=== PATIENT | female | born 1960 | race Caucasian/White ===

== ENCOUNTER 2016-06-23 10:21 | Emergency (ER) | payer MEDICAID ==
[~2016-06-23] VITALS: Ht 160 cm; Wt 81.6 kg
[2016-06-23 10:21] VITALS: BP 152/81; PULSE 101; RESP 16; TEMP 96.6; O2SAT 98
--- NOTE | 2016-06-23 10:21 | NUR ---
Patient to ER bed 3 to gown for evaluation. Side rails up. Report given to kenyon martinez.
--- NOTE | 2016-06-23 10:21 | NUR ---
sudden onset of shortness of breath,wheezing. per pt's son in law pt has lungs problem for four months. pt is awake,alert,wheezing bilaterally,mild distress. skin warm dry.
[2016-06-23] MEDS ORDERED: IPRATROPIUM/ALBUTEROL SULFATE 3 ML AMPUL.NEB INH ONE (10:45)
--- NOTE | 2016-06-23 10:47 | NUR ---
# 18 gauge angiocath placed to LAC . Use of asceptic technique. Opsite placed over site. Blood return noted. Blood for lab drawn from site. Flushed with 10 cc of normal saline. No evidence of infiltration noted. Patient tolerated well.
--- NOTE | 2016-06-23 10:47 | NUR ---
Placed in room 3 . Placed on youth nutritional monitor, blood pressure machine and pulse oximeter. To gown for exam. Side rails up.
--- NOTE | 2016-06-23 11:04 | NUR ---
ER at bedside examining patient.
[2016-06-23] MEDS ORDERED: methylPREDNISolone SOD SUCC/PF 62.5 MG/ML VIAL IVP ONE (11:15)
[2016-06-23 11:25] LABS: BASOPHILS % (AUTO) 0.4 % (0.0-2.0); EOSINOPHILS # (AUTO) 0.5 K/uL (0.0-0.4); EOSINOPHILS % (AUTO) 7.6 % (0.0-4.0); HEMATOCRIT 33.9 % (36-48); HEMOGLOBIN 10.9 g/dL (12.0-16.0); LYMPHOCYTES # (AUTO) 2.1 K/uL (1.0-5.5); LYMPHOCYTES % (AUTO) 30.7 % (20.5-51.5); MEAN CORPUSCULAR HEMOGLOBIN 26 pg (27-31); MEAN CORPUSCULAR HGB CONC 32 % (32-36); MEAN CORPUSCULAR VOLUME 82 fL (79.0-98.0); MONOCYTES # (AUTO) 0.4 K/uL (0.0-1.0); MONOCYTES % (AUTO) 5.2 % (1.7-9.3); NEUTROPHILS # (AUTO) 3.9 K/uL (1.8-7.7); NEUTROPHILS % (AUTO) 56.1 % (40.0-70.0); PLATELET COUNT (AUTO) 324 K/uL (130-430); RED BLOOD CELL COUNT(AUTO) 4.13 MIL/uL (4.2-6.2); RED CELL DISTRIBUTION WIDTH 15.9 % (9.0-15.0); WHITE BLOOD COUNT (AUTO) 6.9 K/uL (4.8-10.8)
[2016-06-23 11:30] LABS: CALCIUM 8.7 mg/dL (8.4-11.0); CREATININE 0.73 mg/dL (0.55-1.30); POTASSIUM 4.1 mmol/L (3.5-5.1)
[2016-06-23 11:35] LABS: ALBUMIN 4.1 g/dL (3.4-4.8); TOTAL BILIRUBIN 0.2 mg/dL (0.0-1.0)
--- NOTE | 2016-06-23 12:07 | NUR ---
returned back from [facility]. symptoms improved after breathing treatment.
[2016-06-23 12:23] LABS: BILIRUBIN,URINE NEGATIVE (NEGATIVE); BLOOD, URINE NEGATIVE (NEGATIVE); CLARITY/URINE CLEAR (CLEAR); COLOR,URINE YELLOW (YELLOW); GLUCOSE,URINE NEGATIVE (NEGATIVE); KETONES,URINE NEGATIVE (NEGATIVE); LEUKOCYTE ESTERASE ,URINE NEGATIVE (NEGATIVE); NITRITE, URINE NEGATIVE (NEGATIVE); PH,URINE 5.5 (5.0-8.0); PROTEIN URINE NEGATIVE (NEGATIVE); UROBILINOGEN,URINE 0.2 (0.2-1.0)
--- NOTE | 2016-06-23 12:44 | NUR ---
Patient given written and verbal discharge instructions and verbalizes understanding. ER MD discussed with patient the results and treatment provided. Given copies of tests performed in ER. Patient in stable condition. ID arm band removed. IV catheter removed intact and dressing applied, no active bleeding. Rx of given. Patient educated on pain management and to follow up with PMD. Pain Scale . Opportunity for questions provided and answered.
[2016-06-23 12:48] VITALS: BP 113/67; PULSE 90; RESP 17; TEMP 98.7; O2SAT 95
== END 2016-06-23 12:48 | disposition home or self-care (01) ==
LOC: SED 10:21
DX: J40 Bronchitis, not specified as acute or chronic (principal)
CPT/HCPCS: 36415; 71010; 80053; 81003; 81025; 83880; 84484; 85025; 93005; 94640; 96374; 99285; J2930

== ENCOUNTER 2017-07-13 07:45 | Emergency (ER) | payer MEDICAID ==
[~2017-07-13] VITALS: Ht 160 cm; Wt 81.6 kg
[2017-07-13 07:48] VITALS: BP_SYST 139
[2017-07-13] MEDS ORDERED: IPRATROPIUM/ALBUTEROL SULFATE 3 ML AMPUL.NEB INH ONE ×3 (08:00→09:15)
[2017-07-13] MEDS ORDERED: DEXAMETHASONE SOD PHOSPHATE 10 MG/ML VIAL IVP ONE (08:00)
[2017-07-13] MEDS ORDERED: NACL 0.9% 1,000 ML IV ONE (08:00)
[2017-07-13 09:50] VITALS: BP_SYST 129
== END 2017-07-13 09:50 | disposition home or self-care (01) ==
LOC: SED 07:45
DX: J45.909 Unspecified asthma, uncomplicated (principal)
CPT/HCPCS: 94640; 96361; 96374; 99284; J1100; J7030

== ENCOUNTER 2017-08-09 22:21 | Emergency (ER) | payer MEDICAID ==
[~2017-08-09] VITALS: Ht 157.5 cm; Wt 72.6 kg
[2017-08-09 22:30] VITALS: BP_SYST 126
[2017-08-09] MEDS ORDERED: MAGNESIUM SULFATE 50 ML IV ONE (22:30)
[2017-08-09] MEDS ORDERED: ALBUTEROL SULFATE 0.083% 2.5 MG/3 ML VIAL.NEB IH ONE ×2 (22:30→23:00)
[2017-08-09] MEDS ORDERED: IPRATROPIUM BROM 0.5 MG/2.5 ML VIAL.NEB (ATROVENT) IH ONE ×2 (22:30→23:00)
[2017-08-09] MEDS ORDERED: methylPREDNISolone SOD SUCC/PF 62.5 MG/ML VIAL IVP ONE (22:30)
[2017-08-09 22:53] LABS: BASOPHILS # (AUTO) 0.1 K/uL (0.0-0.2); BASOPHILS % (AUTO) 0.7 % (0.0-2.0); HEMATOCRIT 36.5 % (36-48); HEMOGLOBIN 12.5 g/dL (12.0-16.0); LYMPHOCYTES # (AUTO) 2.7 K/uL (1.0-5.5); LYMPHOCYTES % (AUTO) 29.2 % (20.5-51.5); MEAN CORPUSCULAR HEMOGLOBIN 30 pg (27-31); MEAN CORPUSCULAR HGB CONC 34 % (32-36); MEAN CORPUSCULAR VOLUME 89 fL (79.0-98.0); MONOCYTES # (AUTO) 0.5 K/uL (0.0-1.0); MONOCYTES % (AUTO) 5.9 % (1.7-9.3); NEUTROPHILS % (AUTO) 53.6 % (40.0-70.0); PLATELET COUNT (AUTO) 318 K/uL (130-430); RED BLOOD CELL COUNT(AUTO) 4.11 MIL/uL (4.2-6.2); RED CELL DISTRIBUTION WIDTH 12.8 % (9.0-15.0); WHITE BLOOD COUNT (AUTO) 9.3 K/uL (4.8-10.8)
[2017-08-09 23:08] LABS: EOSINOPHILS % (AUTO) 10.6 % (0.0-4.0)
[2017-08-09 23:41] LABS: CREATININE 0.55 mg/dL (0.55-1.30); POTASSIUM 3.5 mmol/L (3.5-5.1)
[2017-08-09 23:51] LABS: ALBUMIN 3.8 g/dL (3.4-4.8); TOTAL BILIRUBIN 0.3 mg/dL (0.0-1.0)
[2017-08-10] MEDS ORDERED: ALBUTEROL SULFATE 0.083% 2.5 MG/3 ML VIAL.NEB IH ONE (01:00)
[2017-08-10] MEDS ORDERED: IPRATROPIUM BROM 0.5 MG/2.5 ML VIAL.NEB (ATROVENT) IH ONE (01:00)
[2017-08-10 01:56] VITALS: BP_SYST 132
== END 2017-08-10 01:56 | disposition home or self-care (01) ==
LOC: SED 22:21
DX: J45.901 Unspecified asthma with (acute) exacerbation (principal)
CPT/HCPCS: 36415; 80053; 85025; 94640 ×2; 96365; 96366; 96375; 99285; J2930; J3475

== ENCOUNTER 2018-03-07 16:48 | Emergency (ER) | payer MEDICAID ==
[~2018-03-07] VITALS: Ht 160 cm; Wt 78.0 kg
[2018-03-07 16:51] VITALS: BP_SYST 116
--- NOTE | 2018-03-07 17:05 | NUR ---
Patient to ER bed 7 to gown for evaluation. Side rails up.
--- NOTE | 2018-03-07 17:06 | NUR ---
ER at bedside examining patient.
--- NOTE | 2018-03-07 17:10 | NUR ---
Pt presents to Ed c/o abd pain and SOB. Pt reports h/o asthma. Pt has abd distention and tenderness to palpation noted.
[2018-03-07] MEDS ORDERED: IPRATROPIUM BROM 0.5 MG/2.5 ML VIAL.NEB (ATROVENT) INH ONE ×2 (17:15→19:00)
[2018-03-07] MEDS ORDERED: ALBUTEROL SULFATE 0.083% 2.5 MG/3 ML VIAL.NEB INH ONE ×2 (17:15→19:00)
[2018-03-07] MEDS ORDERED: fentaNYL CITRATE/PF 100 MCG/2 ML AMP IVP ONE (17:15)
--- NOTE | 2018-03-07 17:20 | NUR ---
Pt receiving breathing tx
--- NOTE | 2018-03-07 17:30 | NUR ---
Pt refused pain medication.
[2018-03-07 17:38] LABS: BASOPHILS # (AUTO) 0.1 K/uL (0.0-0.2); BASOPHILS % (AUTO) 0.7 % (0.0-2.0); EOSINOPHILS # (AUTO) 1.2 K/uL (0.0-0.4); EOSINOPHILS % (AUTO) 13.5 % (0.0-4.0); HEMATOCRIT 39.4 % (36-48); HEMOGLOBIN 13.2 g/dL (12.0-16.0); LYMPHOCYTES # (AUTO) 2.9 K/uL (1.0-5.5); LYMPHOCYTES % (AUTO) 32.8 % (20.5-51.5); MEAN CORPUSCULAR HEMOGLOBIN 30 pg (27-31); MEAN CORPUSCULAR HGB CONC 33 % (32-36); MEAN CORPUSCULAR VOLUME 89 fL (79.0-98.0); MONOCYTES # (AUTO) 0.6 K/uL (0.0-1.0); MONOCYTES % (AUTO) 6.6 % (1.7-9.3); NEUTROPHILS # (AUTO) 4.1 K/uL (1.8-7.7); NEUTROPHILS % (AUTO) 46.4 % (40.0-70.0); PLATELET COUNT (AUTO) 294 K/uL (130-430); RED BLOOD CELL COUNT(AUTO) 4.42 MIL/uL (4.2-6.2); RED CELL DISTRIBUTION WIDTH 13.9 % (9.0-15.0); WHITE BLOOD COUNT (AUTO) 8.9 K/uL (4.8-10.8)
[2018-03-07 17:44] LABS: ALBUMIN 3.7 g/dL (3.4-4.8); CALCIUM 8.9 mg/dL (8.4-11.0); CREATININE 0.88 mg/dL (0.55-1.30); POTASSIUM 3.8 mmol/L (3.5-5.1); TOTAL BILIRUBIN 0.4 mg/dL (0.0-1.0)
--- NOTE | 2018-03-07 18:30 | NUR ---
Pt receiving second breathing tx. Pt tolerating well.
[2018-03-07] MEDS ORDERED: methylPREDNISolone SOD SUCC/PF 62.5 MG/ML VIAL IVP ONE (19:00)
--- NOTE | 2018-03-07 19:00 | NUR ---
Pt medicated with Solumedrol.
[2018-03-07 19:30] VITALS: BP_SYST 121
--- NOTE | 2018-03-07 19:30 | NUR ---
Patient given written and verbal discharge instructions and verbalizes understanding. ER MD Nash discussed with patient the results and treatment provided. Patient in stable condition. ID arm band removed. IV catheter removed intact and dressing applied, no active bleeding. Rx of Prednisone, Albuterol given. Patient educated on pain management and to follow up with PMD. Pain Scale 0. Opportunity for questions provided and answered. Medication side effect fact sheet provided.
== END 2018-03-07 19:30 | disposition home or self-care (01) ==
LOC: SED 16:48
DX: J45.909 Unspecified asthma, uncomplicated (principal); R10.9 Unspecified abdominal pain
CPT/HCPCS: 36415; 71045; 74176; 80053; 82550; 83880; 84484; 85025; 93005; 94640; 96374; 99285; J2930; J3010; J7613

== ENCOUNTER 2018-03-26 07:56 | Emergency (ER) | payer MEDICAID ==
[~2018-03-26] VITALS: Ht 167.6 cm; Wt 81.6 kg
[2018-03-26 07:56] VITALS: BP_SYST 150
[2018-03-26] MEDS ORDERED: NACL 0.9% 1,000 ML IV ONE (07:59)
[2018-03-26] MEDS ORDERED: IPRATROPIUM BROM 0.5 MG/2.5 ML VIAL.NEB (ATROVENT) IH ONE ×4 (08:00→10:45)
[2018-03-26] MEDS ORDERED: methylPREDNISolone SOD SUCC/PF 62.5 MG/ML VIAL IVP ONE (08:00)
[2018-03-26] MEDS ORDERED: MAGNESIUM SULFATE 1 GM in NS 50 ML IV ONE (08:00)
[2018-03-26] MEDS ORDERED: cefTRIAXone 1 GM IVPB PREMIX 50 ML IV ONE (08:00)
[2018-03-26] MEDS ORDERED: ALBUTEROL SULFATE 0.083% 2.5 MG/3 ML VIAL.NEB IH ONE ×4 (08:00→10:45)
[2018-03-26] MEDS ORDERED: MAGNESIUM SULFATE 1 GM/2 ML VIAL ONE (08:13)
[2018-03-26 08:28] LABS: BASOPHILS % (AUTO) 0.2 % (0.0-2.0); EOSINOPHILS # (AUTO) 1.1 K/uL (0.0-0.4); HEMATOCRIT 41.7 % (36-48); HEMOGLOBIN 13.1 g/dL (12.0-16.0); LYMPHOCYTES # (AUTO) 1.9 K/uL (1.0-5.5); LYMPHOCYTES % (AUTO) 27.7 % (20.5-51.5); MEAN CORPUSCULAR HEMOGLOBIN 29 pg (27-31); MEAN CORPUSCULAR HGB CONC 31 % (32-36); MEAN CORPUSCULAR VOLUME 91 fL (79.0-98.0); MONOCYTES # (AUTO) 0.5 K/uL (0.0-1.0); MONOCYTES % (AUTO) 6.8 % (1.7-9.3); NEUTROPHILS # (AUTO) 3.4 K/uL (1.8-7.7); NEUTROPHILS % (AUTO) 49.3 % (40.0-70.0); PLATELET COUNT (AUTO) 280 K/uL (130-430); RED BLOOD CELL COUNT(AUTO) 4.58 MIL/uL (4.2-6.2); RED CELL DISTRIBUTION WIDTH 13.8 % (9.0-15.0); WHITE BLOOD COUNT (AUTO) 6.9 K/uL (4.8-10.8)
[2018-03-26 08:33] LABS: CALCIUM 8.6 mg/dL (8.4-11.0); CREATININE 0.71 mg/dL (0.55-1.30); POTASSIUM 3.4 mmol/L (3.5-5.1)
[2018-03-26 08:38] LABS: ALBUMIN 3.9 g/dL (3.4-4.8); TOTAL BILIRUBIN 0.4 mg/dL (0.0-1.0)
[2018-03-26 08:39] LABS: INR 0.9 (0.8-1.2); PROTHROMBIN TIME 9.4 SECS (9.5-12.5)
[2018-03-26] MEDS ORDERED: ALBUTEROL SULFATE 0.083% 2.5 MG/3 ML VIAL.NEB INH ONE (09:10)
[2018-03-26] MEDS ORDERED: IPRATROPIUM BROM 0.5 MG/2.5 ML VIAL.NEB (ATROVENT) INH ONE (09:10)
[2018-03-26 11:19] VITALS: BP_SYST 129
== END 2018-03-26 11:19 | disposition home or self-care (01) ==
LOC: SED 07:56
DX: J45.901 Unspecified asthma with (acute) exacerbation (principal)
CPT/HCPCS: 36415; 36600; 71045; 80053; 82550; 82803; 83605; 83690; 84484; 85025; 85610; 85730; 87040; 93005; 94640; 96365; 96367; 96375; 99285; J0696; J2930; J3475; J7030; J7613; 99284

== ENCOUNTER 2018-04-22 18:53 | Inpatient (IN) | payer MEDICAID ==
[~2018-04-22] VITALS: Ht 160 cm; Wt 79.1 kg
[2018-04-22 19:03] VITALS: BP_SYST 143
[2018-04-22] MEDS ORDERED: IPRATROPIUM/ALBUTEROL SULFATE 3 ML AMPUL.NEB (DUONEB) INH ONE ×3 (19:15→21:15)
[2018-04-22] MEDS ORDERED: DEXAMETHASONE SOD PHOSPHATE 10 MG/ML VIAL IM ONE (19:15)
[2018-04-22] MEDS ORDERED: NACL 0.9% 1,000 ML IV ONE ×2 (19:15→19:50)
[2018-04-22 19:58] LABS: BASOPHILS % (AUTO) 0.5 % (0.0-2.0); EOSINOPHILS # (AUTO) 0.7 K/uL (0.0-0.4); EOSINOPHILS % (AUTO) 8.1 % (0.0-4.0); HEMATOCRIT 41.3 % (36-48); HEMOGLOBIN 13.6 g/dL (12.0-16.0); LYMPHOCYTES # (AUTO) 0.9 K/uL (1.0-5.5); LYMPHOCYTES % (AUTO) 11.1 % (20.5-51.5); MEAN CORPUSCULAR HEMOGLOBIN 30 pg (27-31); MEAN CORPUSCULAR HGB CONC 33 % (32-36); MEAN CORPUSCULAR VOLUME 91 fL (79.0-98.0); MONOCYTES # (AUTO) 0.2 K/uL (0.0-1.0); NEUTROPHILS # (AUTO) 6.5 K/uL (1.8-7.7); NEUTROPHILS % (AUTO) 78.3 % (40.0-70.0); PLATELET COUNT (AUTO) 328 K/uL (130-430); RED BLOOD CELL COUNT(AUTO) 4.56 MIL/uL (4.2-6.2); RED CELL DISTRIBUTION WIDTH 13.5 % (9.0-15.0); WHITE BLOOD COUNT (AUTO) 8.3 K/uL (4.8-10.8)
[2018-04-22] MEDS ORDERED: MAGNESIUM SULFATE 50 ML IV ONE (20:00)
[2018-04-22 20:02] LABS: ANION GAP 9 (5-15); CHLORIDE 104 mmol/L (98-107); CREATININE 0.79 mg/dL (0.55-1.30); GFR AFRICAN AMERICAN 97 mL/min (>90); GLUCOSE 140 mg/dL (70-99); POTASSIUM 4.4 mmol/L (3.5-5.1); SODIUM SERUM 140 mmol/L (136-145); UREA NITROGEN, BLOOD 16 mg/dL (8-21)
[2018-04-22 20:11] LABS: ALANINE AMINOTRANSFERASE 37 U/L (12-78); ASPARTATE AMINOTRANSFERASE 20 U/L (10-37); TOTAL BILIRUBIN 0.3 mg/dL (0.0-1.0)
[2018-04-22] MEDS ORDERED: ALBU8.5H8 INH (21:16)
[2018-04-22] MEDS ORDERED: IPRATROPIUM/ALBUTEROL SULFATE 3 ML AMPUL.NEB (DUONEB) INH PRN (21:30)
[2018-04-22] MEDS ORDERED: POTASSIUM CHLORIDE 20 MEQ TAB.PRT.SR PO PRN (21:45)
[2018-04-22] MEDS ORDERED: MORPHINE 4 MG/ML INJ. SYRINGE IVP PRN ×2 (21:45)
[2018-04-22] MEDS ORDERED: LORazepam 2 MG/ML VIAL IVP PRN (21:45)
[2018-04-22] MEDS ORDERED: MUPIROCIN 2% TOPICAL OINTMENT 22 GM NS PRN (21:45)
[2018-04-22] MEDS ORDERED: ONDANSETRON HCL 4 MG/2 ML VIAL IVP PRN (21:45)
[2018-04-22] MEDS ORDERED: DOCUSATE SODIUM 100 MG CAPSULE PO PRN (21:45)
[2018-04-22] MEDS ORDERED: ZOLPIDEM TARTRATE 5 MG TABLET PO PRN (21:45)
[2018-04-22] MEDS ORDERED: MAGNESIUM SULFATE 50 ML IV PRN (21:45)
[2018-04-22] MEDS ORDERED: ACETAMINOPHEN 325 MG TABLET PO PRN (21:45)
[2018-04-22 21:57] VITALS: BP_SYST 125
[2018-04-22 22:11] VITALS: BP_SYST 128
[2018-04-22 22:15] VITALS: BP_SYST 125
[2018-04-23 00:30] VITALS: BP_SYST 132
[2018-04-23 08:00] VITALS: BP_SYST 121
[2018-04-23] MEDS: HEPARIN SODIUM,PORCINE 5000 UNITS/ML VIAL SUBCUT SCH ×2 (08:59→20:23)
[2018-04-23] MEDS ORDERED: methylPREDNISolone SOD SUCC 40 MG/ML VIAL IVP SCH ×2 (09:00)
[2018-04-23] MEDS ORDERED: FLUTICASONE 250 mCg/SALMETEROL 50 mCg DISKUS W.DEV INH SCH (10:00)
[2018-04-23] MEDS ORDERED: FLUTICASONE/VILANTEROL 1 EACH BLST.W.DEV INH ONE (10:00)
[2018-04-23] MEDS ORDERED: DEXTROSE 50% JECT 50 ML DISP.SYRIN IVP PRN (10:00)
[2018-04-23] MEDS: IPRATROPIUM/ALBUTEROL SULFATE 3 ML AMPUL.NEB (DUONEB) INH SCH ×5 (10:30→23:23)
[2018-04-23] MEDS ORDERED: AZITHROMYCIN 250 MG TABLET PO ONE (10:30)
[2018-04-23 12:34] VITALS: BP_SYST 120
[2018-04-23] MEDS: methylPREDNISolone SOD SUCC/PF 62.5 MG/ML VIAL IVP SCH ×2 (15:44→20:20)
[2018-04-23 16:10] VITALS: BP_SYST 136
[2018-04-23] MEDS: INSULIN ASPART 100 UNITS/ML, 10 ML VIAL (NovoLOG) SUBCUT PRN ×2 (17:19→20:39)
[2018-04-23 20:00] VITALS: BP_SYST 115
[2018-04-24 00:18] VITALS: BP_SYST 113
[2018-04-24] MEDS: methylPREDNISolone SOD SUCC/PF 62.5 MG/ML VIAL IVP SCH ×2 (04:00→08:51)
[2018-04-24] MEDS: IPRATROPIUM/ALBUTEROL SULFATE 3 ML AMPUL.NEB (DUONEB) INH SCH ×3 (04:24→11:19)
[2018-04-24 07:55] VITALS: BP_SYST 104
[2018-04-24] MEDS: HEPARIN SODIUM,PORCINE 5000 UNITS/ML VIAL SUBCUT SCH (08:54)
[2018-04-24] MEDS ORDERED: FLUTICASONE/VILANTEROL 1 EACH BLST.W.DEV INH SCH (09:00)
[2018-04-24] MEDS ORDERED: AZITHROMYCIN 250 MG TABLET PO SCH ×2 (09:00)
[2018-04-24] MEDS ORDERED: FLO44 INH (10:54)
[2018-04-24] MEDS ORDERED: MONT10TA25 PO (10:54)
[2018-04-24 11:18] VITALS: BP_SYST 120
[2018-04-24] MEDS ORDERED: methylPREDNISolone SOD SUCC 40 MG/ML VIAL IVP SCH (14:00)
[2018-04-24] MEDS ORDERED: MONTELUKAST 10 MG TABLET PO SCH (18:00)
== END 2018-04-24 11:50 | disposition home or self-care (01) | DRG 141 ==
LOC: SED 18:53 → SMU 21:18
PROVIDERS: ADMIT General Practice; ATTEND General Practice
DX: J45.902 Unspecified asthma with status asthmaticus (principal); E66.9 Obesity, unspecified; Z68.30 Body mass index [BMI] 30.0-30.9, adult; Z79.899 Other long term (current) drug therapy; Z82.5 Family history of asthma and other chronic lower respiratory diseases
CPT/HCPCS: 36415; 71045; 80053; 82962; 84484; 85025; 90656; 93005; 94640; 94760; 96361; 96365; 96366; 96372; 99285; J1030; J1100; J1644; J1815; J2930; J3475; J7620; Q0144

== ENCOUNTER 2018-08-20 16:32 | Emergency (ER) | payer MEDICAID ==
[~2018-08-20] VITALS: Ht 160 cm; Wt 83.9 kg
[~2018-08-20 16:32] MED LIST: ALBU8.5H8 INH; FLO44 INH; MONT10TA25 PO
[2018-08-20 16:34] VITALS: BP_SYST 115
[2018-08-20] MEDS ORDERED: ALBUTEROL SULFATE 0.083% 2.5 MG/3 ML VIAL.NEB IH ONE ×2 (17:30→18:00)
[2018-08-20] MEDS ORDERED: PREDNISONE 20 MG TABLET PO ONE (17:30)
[2018-08-20] MEDS ORDERED: IPRATROPIUM BROM 0.5 MG/2.5 ML VIAL.NEB (ATROVENT) IH ONE ×2 (17:30→18:00)
[2018-08-20] MEDS ORDERED: ALBUTEROL SULFATE 0.083% 2.5 MG/3 ML VIAL.NEB INH ONE (17:58)
[2018-08-20] MEDS ORDERED: IPRATROPIUM BROM 0.5 MG/2.5 ML VIAL.NEB (ATROVENT) INH ONE (17:58)
[2018-08-20 18:20] VITALS: BP_SYST 116
== END 2018-08-20 18:20 | disposition home or self-care (01) ==
LOC: SED 16:32
DX: J45.909 Unspecified asthma, uncomplicated (principal); Z79.899 Other long term (current) drug therapy
CPT/HCPCS: 94640; 99284; J7512; J7613

== ENCOUNTER 2018-08-26 13:01 | Emergency (ER) | payer MEDICAID ==
[~2018-08-26] VITALS: Ht 160 cm; Wt 79.4 kg
[2018-08-26 13:01] VITALS: BP_SYST 117
--- NOTE | 2018-08-26 13:01 | NUR ---
BROUGHT BACK TO BED #5 AND TRIAGED. REPORT GIVEN TO SANTOSH
--- NOTE | 2018-08-26 13:09 | NUR ---
DR DUPREE AT BEDSIDE FOR EVALUATION
--- NOTE | 2018-08-26 13:10 | NUR ---
Patient comes to ER in personal vehicle accompanied by . Patient is AOx4, verbal and ambulatory. Patient comes with complaint of SOB, and has a history of asthma exacerbation. O2 Sats are >92 on room. No other complaint or injury at this time.
--- NOTE | 2018-08-26 13:14 | NUR ---
RT AT BEDSIDE FOR EVALAUTION
[2018-08-26] MEDS ORDERED: methylPREDNISolone SOD SUCC/PF 62.5 MG/ML VIAL IVP ONE (13:15)
[2018-08-26] MEDS ORDERED: IPRATROPIUM BROM 0.5 MG/2.5 ML VIAL.NEB (ATROVENT) IH ONE ×2 (13:15→14:30)
[2018-08-26] MEDS ORDERED: ALBUTEROL SULFATE 0.083% 2.5 MG/3 ML VIAL.NEB IH ONE ×2 (13:15→14:30)
[2018-08-26] MEDS ORDERED: MAGNESIUM SULFATE 1 GM in NS 50 ML IV ONE (13:15)
--- NOTE | 2018-08-26 13:30 | NUR ---
Medicated per MD orders. IVF infusing with no s/s of infiltration at this time. Will cont to monitor
[2018-08-26 13:36] LABS: BASOPHILS % (AUTO) 0.5 % (0.0-2.0); EOSINOPHILS # (AUTO) 1.5 K/uL (0.0-0.4); HEMATOCRIT 40.8 % (36-48); HEMOGLOBIN 13.8 g/dL (12.0-16.0); LYMPHOCYTES % (AUTO) 29.8 % (20.5-51.5); MEAN CORPUSCULAR HEMOGLOBIN 30 pg (27-31); MEAN CORPUSCULAR HGB CONC 34 % (32-36); MEAN CORPUSCULAR VOLUME 90 fL (79.0-98.0); MONOCYTES # (AUTO) 0.6 K/uL (0.0-1.0); MONOCYTES % (AUTO) 5.6 % (1.7-9.3); NEUTROPHILS % (AUTO) 49.1 % (40.0-70.0); PLATELET COUNT (AUTO) 303 K/uL (130-430); RED BLOOD CELL COUNT(AUTO) 4.54 MIL/uL (4.2-6.2); RED CELL DISTRIBUTION WIDTH 13.4 % (9.0-15.0); WHITE BLOOD COUNT (AUTO) 10.1 K/uL (4.8-10.8)
[2018-08-26] MEDS ORDERED: MAGNESIUM SULFATE 1 GM/2 ML VIAL ONE (13:38)
[2018-08-26 13:46] LABS: CALCIUM 8.9 mg/dL (8.4-11.0); CREATININE 0.71 mg/dL (0.55-1.30); POTASSIUM 3.7 mmol/L (3.5-5.1)
[2018-08-26 13:51] LABS: ALBUMIN 3.4 g/dL (3.4-4.8); TOTAL BILIRUBIN 0.5 mg/dL (0.0-1.0)
[2018-08-26] MEDS ORDERED: cefTRIAXone 1 GM IVPB PREMIX 50 ML IV ONE (14:00)
[2018-08-26] MEDS ORDERED: NACL 0.9% 1,000 ML IV ONE (14:00)
--- NOTE | 2018-08-26 15:14 | NUR ---
Medicated per MD orders. IVF infusing with no s/s of infiltration at this time. Will cont to monitor
--- NOTE | 2018-08-26 15:45 | NUR ---
Patient given written and verbal discharge instructions and verbalizes understanding. ER MD discussed with patient the results and treatment provided. Patient in stable condition. ID arm band removed. IV catheter removed intact and dressing applied, no active bleeding. Rx of Prednisone, Zithromax, Proventil given. Patient educated on bronchospasm, asthma, and bronchitis and to follow up with PMD. Pain Scale 0/10. Opportunity for questions provided and answered. Medication side effect fact sheet provided.
[2018-08-26 15:49] VITALS: BP_SYST 120
== END 2018-08-26 15:49 | disposition home or self-care (01) ==
LOC: SED 13:01
DX: J40 Bronchitis, not specified as acute or chronic (principal); J90 Pleural effusion, not elsewhere classified; Z79.899 Other long term (current) drug therapy
CPT/HCPCS: 36415; 71045; 80053; 82550; 83605; 83690; 85025; 87040; 94640; 96365; 96368; 96375; 99284; J0696; J2930; J3475; J7030; J7613